=== PATIENT | female | born 1985 | race Caucasian/White ===

== ENCOUNTER 2017-04-14 07:23 | Emergency (ER) | payer BC ==
[2017-04-14] MEDS ORDERED: DEMEROL INJ ONE (07:27)
[2017-04-14] MEDS ORDERED: ZOFRAN INJ 4 MG VIAL ONE (07:27)
[2017-04-14] MEDS ORDERED: DEMEROL INJ IVP ONE (07:34)
[2017-04-14] MEDS ORDERED: NS 1000 ML 1,000 ML IV ONE (07:34)
[2017-04-14] MEDS ORDERED: ZOFRAN INJ 4 MG VIAL IVP ONE (07:34)
--- NOTE | 2017-04-14 07:36 | DR.GENAD ---
HPI - PCP Primary Care Physician: ILDEFONSO - HPI Comment HPI Comment: PATIENT HAVE PAIN ON AND OFF TIMES ONE WEEK. WORSE THIS AM. IN ED DIAPHORETIC WITH SEVERE PAIN. 4 MONTHS POST . CURRENTLY ONMACROBID FOR UTI. - Complaint/Symptoms Chief Complaint Doctors Comments: LLQ ABDOMINALPAIN. Chief Complaint:: PT C/O LT SIDED ABD PAIN. PT'S STATES PT HAS BEEN HURTING ON AND OFF FOR A WEEK AND HAS BEEN TREATING HERSELF FOR A KIDNEY INFECTION AND SHE WAS HAVING FLU LIKE SYMPTOMS. PT STATES HER PAIN IS JUST GETTING WORSE. NOTED PT TO BE VERY DIAPHORETIC - Nurses notes reviewed Nurses Notes Review: Yes - Source History Provided: Patient - Mode of Arrival Mode of Arrival: Ambulatory - Timing Onset of Chief Complaint: 04/12/17 Came on: Suddenly - Duration Duration: Constant Duration: Days - Severity Severity: Moderate <DEVENDRA FLORES - Last Filed: 04/14/17 08:14> PMH - PMH Past Medical History: Yes Past Medical History: Depression Past Surgical History: No - Family History History of Family Medical Conditions: Yes Family Medical History: Diabetes Mellitus, Cancer, Hypertension - Social History Does any household member use tobacco: No Alcohol Use: None Do you use any recreational Drugs:: No Lives With: Family Lives Where: Home - infectious screening In the last 2 months have you had wt loss of >10#?: NO Have you had fever, night sweats or hemotysis?: No Have you traveled outside the country in the last 6 months?: No Isolation: Standard <DEVENDRA FLORES - Last Filed: 04/14/17 08:14> ROS - Review of Systems Constitutional: Fever, Weakness, Fatigue Eyes: No Symptoms Reported ENTM: No Symptoms Reported Respiratoy: No Symptoms Reported Cardiovascular: No Symptoms Reported Gastrointestinal/Abdominal: Abdominal Pain, Nausea Genitourinary: Dysuria Neurological: Weakness Musculoskeletal: No Symptoms Reported Integumentary: No Symptoms Reported Hematologic/Lymphatic: No Symptoms Reported Endocrine: No Symptoms Reported All Other Systems: Reviewed and Negative <DEVENDRA FLORES - Last Filed: 04/14/17 08:14> PE - General Limitations: No Limitations General Appearance: Alert - Head Head Exam: Normal Inspection - Eyes Eye exam: Normal Appearance - ENT ENT Exam: Normal External Ear Exam TM/Canal Exam: Bilateral Normal Nose Exam: Normal Nose Exam Mouth Exam: Normal Inspection Throat Exam: Normal Inspection - Neck Neck Exam: Normal Inspection - Chest Chest Inspection: Symmetric Chest Wall Rise - Respiratory Respiratory Exam: Normal Lung Sounds Bilat Respiratory Exam: Bilateral Clear to Auscultation - Cardiovascular Cardiovascular Exam: Regular Rate, Normal Rhythm, Normal Heart Sounds - Abdominal Exam Abdominal Exam: Normal Bowel Sounds, Soft. negative: Tenderness - Extremities Extremities Exam: Normal Inspection - Back Back Exam: Normal Inspection - Neurologic Neurological Exam: Alert, Oriented X3 - Psychiatric Psychiatric Exam: Normal Affect, Normal Mood - Skin Skin Exam: Normal Color <DEVENDRA FLORES - Last Filed: 04/14/17 08:14> - Vital Signs Vitals: Pulse Rate [Right Brachial] 84 Pulse Rate 65 Respiratory Rate 20 Blood Pressure [Right Arm] 130/76 Blood Pressure 113/63 O2 Sat by Pulse Oximetry 97 MDM - Additional Information Additional Information Obtained From: Family - Differential Diagnosis Differential Diagnosis: LLQ ABDOMINAL PAIN, LT FLANK PAIN, KIDNEY STONE, UTI <DEVENDRA FLORES - Last Filed: 04/14/17 08:14> Course - Treatment Treatment: SEE ORDERS. NS IV BOLUS AND IV PAIN MEDS. PAIN DECREASING. - Reevaluation 1st: Improved - Education/Counseling Education/Counseling: Patient, Family Educated On: Treatment, Diagnosis <MARKDIDIYANELI - Last Filed: 04/14/17 08:14> - Consultation Called: 09:12 Call Returned: 09:12 Consultation Comments: Pt's. presntation and findings were discussed. Dr. Lew was kind enough to agree to accept this to see this pt. in his office early this afternoon. Pt. was informed of plan and she agrees to this. <MARIE DYER - Last Filed: 04/14/17 09:29> ROR - Labs Reviewed Result Diagrams: 04/14/17 07:30 04/14/17 07:30 <DEVENDRA FLORES - Last Filed: 04/14/17 08:14> - Labs Reviewed Result Diagrams: 04/14/17 07:30 04/14/17 07:30 - XRAY XRAY Interpreted by: Radiologist (CT of Abdomen + Pelvis: Left hydronephrosis and hydroureter secondary to a dista left ureteral 5mm calculusnear the UV junction. 2. 4 mm calculus in the lower pole of the right kidney. 3. Mild splenomegaly. ) <MARIE DYER - Last Filed: 04/14/17 09:29> - Labs Reviewed Laboratory: WBC 5.6 X10^3/uL (3.6-10.0) 04/14/17 07:30 RBC 4.71 X10^6/uL (3.5-5.4) 04/14/17 07:30 Hgb 13.6 g/dL (12.0-16.0) 04/14/17 07:30 Hct 38.9 % (36.0-47.0) 04/14/17 07:30 MCV 82.5 fL (80.0-100.0) 04/14/17 07:30 MCH 28.9 pg (27.0-34.0) 04/14/17 07:30 MCHC 35.1 g/dL (33.0-35.0) H 04/14/17 07:30 RDW 15.9 % (11.6-16.5) 04/14/17 07:30 Plt Count 245 X10^3/uL (150.0-450.0) 04/14/17 07:30 MPV 7.6 fL (7.4-11.0) 04/14/17 07:30 Neut % 40.2 % (42.0-75.0) L 04/14/17 07:30 Lymph % 52.2 % (21.0-51.0) H 04/14/17 07:30 Bath % 7.4 % (0.0-13.0) 04/14/17 07:30 Eos % 0.0 % (0.9-2.9) L 04/14/17 07:30 Baso % 0.2 % (0.2-1.0) 04/14/17 07:30 Neut # 2.3 x10^3/uL (2.2-4.8) 04/14/17 07:30 Lymph # 2.9 X10^3/uL (1.3-2.9) 04/14/17 07:30 Bath # 0.4 x10^3/uL (0.3-0.8) 04/14/17 07:30 Eos # 0.0 x10^3/uL (0.0-0.2) 04/14/17 07:30 Baso # 0.0 X10^3/uL (0.0-0.1) 04/14/17 07:30 Absolute Nucleated RBC 0.1 /100WBC 04/14/17 07:30 Sodium 138 mmol/L (136-145) 04/14/17 07:30 Corrected Sodium 139 mmol/L (136-145) 04/14/17 07:30 Potassium 4.4 mmol/L (3.5-5.1) 04/14/17 07:30 Chloride 102 mmol/L (98-107) 04/14/17 07:30 Carbon Dioxide 25.7 mmol/L (21-32) 04/14/17 07:30 BUN 18 mg/dL (7-18) 04/14/17 07:30 Creatinine 0.96 mg/dL (0.55-1.02) 04/14/17 07:30 Est GFR (MDRD) Af Amer > 60 (>60) 04/14/17 07:30 Est GFR (MDRD) Non-Af > 60 (>60) 04/14/17 07:30 Glucose 123 mg/dL (65-99) H 04/14/17 07:30 Lactic Acid 1.3 mmol/L (0.4-2.0) 04/14/17 07:30 Calcium 9.0 mg/dL (8.5-10.1) 04/14/17 07:30 Corrected Calcium TNP 04/14/17 07:30 Total Bilirubin 0.50 mg/dL (0.2-1.0) 04/14/17 07:30 AST 32 Units/L (15-37) 04/14/17 07:30 ALT 24 Units/L (12-78) 04/14/17 07:30 Alkaline Phosphatase 95 Units/L (46-116) 04/14/17 07:30 C-Reactive Protein 1.30 mg/L (0-3.0) 04/14/17 07:30 Total Protein 7.3 g/dL (6.4-8.2) 04/14/17 07:30 Albumin 4.1 g/dL (3.4-5.0) 04/14/17 07:30 Globulin 3.2 g/dL (2.5-4.5) 04/14/17 07:30 Albumin/Globulin Ratio 1.3 Ratio (1.1-2.1) 04/14/17 07:30 HCG, Qual Negative <10 mIU/mL 04/14/17 07:30 HCG, Quant < 1 mIU/mL (0-6) 04/14/17 07:30 Specimen Type Clean catch urine 04/14/17 08:36 Urine Color Downey (YELLOW) 04/14/17 08:36 Urine Appearance Clear (CLEAR) 04/14/17 08:36 Urine RBC 30-40 /HPF (NEGATIVE) 04/14/17 08:36 Urine WBC 1-4 /HPF (NEGATIVE) 04/14/17 08:36 Ur Squamous Epith Cells Few /HPF (NEGATIVE) 04/14/17 08:36 Urine Bacteria Trace /HPF (Negative) 04/14/17 08:36 Urine Mucus Moderate /HPF (NEGATIVE) 04/14/17 08:36 Ur Culture Indicated? No/not indicated 04/14/17 08:36 Micro UA Comment Unable to perform (-) 04/14/17 08:36 <DEVENDRA FLORES - Last Filed: 04/14/17 08:14> <MARIE DYER - Last Filed: 04/14/17 09:29> - Diagnosis Discharge Problem: Ureterolithiasis - Discharge Plan Disposition: 01 HOME, SELF-CARE Condition: Stable - Instructions
[2017-04-14] MEDS ORDERED: NS 1000 ML 1,000 ML ONE (07:37)
[2017-04-14 07:38] VITALS: BMI 26.9
[2017-04-14 07:45] LABS: BASOPHILS % (AUTO) 0.2 % (0.2-1.0); HEMATOCRIT 38.9 % (36.0-47.0); HEMOGLOBIN 13.6 g/dL (12.0-16.0); LYMPHOCYTES # (AUTO) 2.9 X10^3/uL (1.3-2.9); LYMPHOCYTES % (AUTO) 52.2 % (21.0-51.0); MEAN CORPUSCULAR HEMOGLOBIN 28.9 pg (27.0-34.0); MEAN CORPUSCULAR HGB CONC 35.1 g/dL (33.0-35.0); MEAN CORPUSCULAR VOLUME 82.5 fL (80.0-100.0); MEAN PLATELET VOLUME 7.6 fL (7.4-11.0); MONOCYTES # (AUTO) 0.4 x10^3/uL (0.3-0.8); MONOCYTES % (AUTO) 7.4 % (0.0-13.0); NEUTROPHILS # (AUTO) 2.3 x10^3/uL (2.2-4.8); NEUTROPHILS % (AUTO) 40.2 % (42.0-75.0); PLATELET COUNT 245 X10^3/uL (150.0-450.0); RED BLOOD COUNT 4.71 X10^6/uL (3.5-5.4); RED CELL DISTRIBUTION WIDTH 15.9 % (11.6-16.5); WHITE BLOOD COUNT 5.6 X10^3/uL (3.6-10.0)
[2017-04-14] MEDS ORDERED: DILAUDID INJ ONE (07:52)
[2017-04-14] MEDS ORDERED: DILAUDID INJ IVP ONE (07:52)
[2017-04-14 08:01] VITALS: BP 130/76
[2017-04-14 08:02] LABS: ALANINE AMINOTRANSFERASE 24 Units/L (12-78); ALBUMIN 4.1 g/dL (3.4-5.0); ALKALINE PHOSPHATASE 95 Units/L (46-116); ASPARTATE AMINO TRANSFERASE 32 Units/L (15-37); BLOOD UREA NITROGEN 18 mg/dL (7-18); CARBON DIOXIDE 25.7 mmol/L (21-32); CHLORIDE 102 mmol/L (98-107); COR NA(FOR HYPERGLY) 139 mmol/L (136-145); CREATININE 0.96 mg/dL (0.55-1.02); SODIUM 138 mmol/L (136-145); TOTAL PROTEIN 7.3 g/dL (6.4-8.2); eGFR BLACK RACES > 60 (>60); eGFR NON BLACK RACES > 60 (>60)
[2017-04-14 08:08] LABS: SERUM PREGNANCY TEST, QUAL NEGATIVE <10 mIU/mL
[2017-04-14 08:09] LABS: HCG,QUANTITATIVE < 1 mIU/mL (0-6)
[2017-04-14 08:18] LABS: LACTIC ACID 1.3 mmol/L (0.4-2.0)
[2017-04-14] MEDS ORDERED: TORADOL 30 MG VIAL IVP ONE (08:41)
[2017-04-14] MEDS ORDERED: TORADOL 30 MG VIAL ONE (08:42)
--- NOTE | 2017-04-14 08:45 | CT ---
History: Left-sided abdominal pain Study: CT of the abdomen and pelvis without contrast. Sagittal and coronal reformations were provided . Comparison: None Findings: The visualized lung bases are clear. The spleen measures 14.5 cm AP diameter and 11.23 cm s agittal length. No focal splenic mass is demonstrated. The liver and pancreas and adrenal glands are unremarkable. There is a 4 mm calculus in the lower pole of the right kidney. There is no right hydr onephrosis. There is a 5 mm calculus in the distal left ureter with moderate left hydroureter and hyd ronephrosis. The uterus is normal. There is no abnormal adnexal mass. There is no bowel distention or wall thickening. The appendix is normal. Impression: 1. Left hydroureter and hydronephrosis secondary to a distal left ureteral 5 mm calculus near the ure terovesical junction. 2. 4 mm calculus in the lower pole of the right kidney. 3. Mild splenomegaly Reported By:
[2017-04-14 08:50] LABS: APPEARANCE,URINE CLEAR (CLEAR); COLOR,URINE ORANGE (YELLOW); RBC,URINE 30-40 /HPF (NEGATIVE)
[2017-04-14 08:51] LABS: BACTERIA,URINE Trace /HPF (Negative); MUCUS,URINE MODERATE /HPF (NEGATIVE); SQUAMOUS EPITHELIAL CELL,UR FEW /HPF (NEGATIVE)
== END 2017-04-14 09:40 | disposition home or self-care (01) ==
LOC: ER 07:23
DX: R16.1 Splenomegaly, not elsewhere classified (principal); N21.1 Calculus in urethra
CPT/HCPCS: 36415; 74176; 80053; 81015; 83605; 84702; 84703; 85025; 86140; 87040; 96365; 96374; 96375; 99283; A4222; J1170; J1885; J2175; J2405